=== PATIENT | male | born 1960 | race Caucasian/White ===

== ENCOUNTER 2016-12-20 14:20 | Observation (INO) | payer BC ==
[~2016-12-20] VITALS: Ht 175.3 cm; Wt 117.9 kg
--- NOTE | 2016-12-20 14:21 | NUR ---
Placed in room 7. Placed on diagnostic cardiac sonographer, blood pressure machine and pulse oximeter. Triaged at bedside. To gown for exam. Side rails up. Report given to Amita BURNHAM.
[2016-12-20 14:29] VITALS: BP_SYST 137
[2016-12-20] MEDS ORDERED: ASPIRIN 325 MG TABLET PO ONE (14:30)
--- NOTE | 2016-12-20 14:31 | NUR ---
Dr. Amin at bedside for evaluation
--- NOTE | 2016-12-20 14:35 | NUR ---
PT. TO ER AAOx4 PRESENTED TO THE ER C/O CHEST PAIN SINCE LAST NIGHT. PER PT. HE ATE EGGS AND BEANS LAST NIGHT STARTED MILD EPIGASTRIC PAIN, THIS MORNING ATE HAM AND EGGS STARTED MILD MID CHEST PAIN NON RADIATING 4/10, STATES NO TROUBLE BREATHING, DENIES N/V/D, DENIES HEADACHE, ON SENIOR MANAGER ASSET PROTECTION
[2016-12-20] MEDS ORDERED: MAG HYDROX/AL HYDROX/SIMETH 30 ML, BELLADONNA ALKALOIDS/PHENOBARB 10 ML, LIDOCAINE VISC... PO ONE ×3 (14:45)
[2016-12-20 14:46] LABS: BASOPHILS # (AUTO) 0.1 K/uL (0.0-0.2); BASOPHILS % (AUTO) 1.2 % (0.0-2.0); EOSINOPHILS # (AUTO) 0.2 K/uL (0.0-0.4); EOSINOPHILS % (AUTO) 1.8 % (0.0-4.0); HEMATOCRIT 43.2 % (36-54); HEMOGLOBIN 14.5 g/dL (14.0-18.0); LYMPHOCYTES % (AUTO) 25.6 % (20.5-51.5); MEAN CORPUSCULAR HEMOGLOBIN 30 pg (27-31); MEAN CORPUSCULAR HGB CONC 34 % (32-36); MEAN CORPUSCULAR VOLUME 88 fL (79.0-98.0); MONOCYTES # (AUTO) 0.9 K/uL (0.0-1.0); NEUTROPHILS # (AUTO) 7.4 K/uL (1.8-7.7); NEUTROPHILS % (AUTO) 63.4 % (40.0-70.0); PLATELET COUNT (AUTO) 212 K/uL (130-430); RED BLOOD CELL COUNT(AUTO) 4.91 MIL/uL (4.2-6.2); WHITE BLOOD COUNT (AUTO) 11.6 K/uL (4.8-10.8)
[2016-12-20 14:51] LABS: CALCIUM 8.6 mg/dL (8.4-11.0); CREATININE 1.1 mg/dL (0.55-1.30); POTASSIUM 3.5 mmol/L (3.5-5.1)
[2016-12-20 14:53] LABS: PROTHROMBIN TIME 10.4 SECS (9.5-12.5)
[2016-12-20 14:56] LABS: ALBUMIN 3.7 g/dL (3.4-4.8); TOTAL BILIRUBIN 0.4 mg/dL (0.0-1.0); TOTAL PROTEIN, SERUM 7.1 g/dL (6.4-8.3)
--- NOTE | 2016-12-20 15:19 | NUR ---
DR. VILLELA AT BEDSIDE TALING TO THE PT. ABOUT ELEVATED TROPONIN AND FURTHUR PLAN OF CARE Addendum: 12/20/16 at 1519 by GLENN TALKING
--- NOTE | 2016-12-20 15:24 | NUR ---
PT. STATES NO PIAN AFTER TAKING ASPRIN AND GI COCKTAIL
[2016-12-20] MEDS ORDERED: ENOXAPARIN SODIUM 100 MG/ML SYRINGE SUBCUT ONE (15:30)
[2016-12-20 15:41] LABS: BILIRUBIN,URINE NEGATIVE (NEGATIVE); CLARITY/URINE CLEAR (CLEAR); COLOR,URINE YELLOW (YELLOW); GLUCOSE,URINE NEGATIVE (NEGATIVE); KETONES,URINE NEGATIVE (NEGATIVE); LEUKOCYTE ESTERASE ,URINE NEGATIVE (NEGATIVE); NITRITE, URINE NEGATIVE (NEGATIVE); PROTEIN URINE NEGATIVE (NEGATIVE)
[2016-12-20 15:44] LABS: BLOOD, URINE TRACE (NEGATIVE)
[2016-12-20 15:58] LABS: BACTERIA,URINE FEW /HPF (None Seen); RBC,URINE 0-3 /HPF (0-3)
[2016-12-20 15:59] LABS: MUCUS,URINE 1+ /LPF (None Seen)
[2016-12-20] MEDS ORDERED: NITROGLYCERIN 0.4 MG TAB.SUBL SL PRN (16:15)
--- NOTE | 2016-12-20 16:15 | NUR ---
Patient will be admitted to care of DR. HOLLEY. Admitted to TELE OBS unit. Will go to room 122A. Belongings list completeD BY PATRICK HERMOSILLO Summary report printed. Report given to ADMITTING NURSE
--- NOTE | 2016-12-20 16:23 | NUR ---
ADMISSION NOTE Received patient from ER via renatarlan, received report from CANDELARIO BURNHAM. Patient admitted with diagnosis of CHEST PAIN. Patient oriented to hospital routine, call light, toileting and safety-patient verbalized understanding.
[2016-12-20 16:36] VITALS: BP_SYST 139
--- NOTE | 2016-12-20 16:41 | NUR ---
CALLED CARDIOLOGY CONSULT TO DR ESTRADA, RE: CHEST PAIN, DR RONDON OPAL MINER. SPOKE TO KIP
[2016-12-20 16:43] VITALS: BP_SYST 139
--- NOTE | 2016-12-20 17:33 | NUR ---
Rounds: Pt sitting semi-fowlers in bed. Denies chest pain and SOB. Call light in reach. Pt ambulatory with steady gait. Ambulates well unassisted. Continue to monitor.
--- NOTE | 2016-12-20 18:32 | NUR ---
Closing Note: Pt sitting semi-fowlers in bed. No acute signs of distress noted. Patient denies chest pain and SOB. Call light in reach. No other needs noted. Endorse plan of care to NOC RN.
[2016-12-20] MEDS ORDERED: ZOLPIDEM TARTRATE 5 MG TABLET PO PRN (18:45)
[2016-12-20] MEDS ORDERED: ACETAMINOPHEN 325 MG TABLET PO PRN (18:45)
[2016-12-20] MEDS ORDERED: *LOVENOX 1MG/KG Q12H/PHARMACY XX ONE (18:45)
[2016-12-20] MEDS ORDERED: ONDANSETRON HCL 4 MG/2 ML VIAL IVP PRN (18:45)
[2016-12-20] MEDS ORDERED: MORPHINE 2 MG/ML INJ. SYRINGE IVP PRN (18:45)
[2016-12-20] MEDS ORDERED: PANTOPRAZOLE SODIUM 40 MG/VIAL (PROTONIX) IVP ONE (19:15)
--- NOTE | 2016-12-20 19:50 | NUR ---
NOTES; SEEN PT WITH BOOTS ON IN BED. PT IS ANXIOUS TO GO HOME. AT BEDSIDE WITH GOOD SUPPORT. NO ACUTE DISTRESS NOTED. VITAL SIGNS STABLE, AFEBRILE. IV SALINE LOCK THE LEFT FOREARM , PATENT. PLAN OF CARE DISCUSSED. PT VERBALIZED UNDERSTANDING. PT DENIES ANY CHEST PAIN OR DISTRESS AT THIS TIME. SAFETY MEASURES IN PROGRESS. WILL CONTINUE TO MONITOR.
--- NOTE | 2016-12-20 19:50 | NUR ---
NOTES; RECEIVED CRITICAL TROPONIN RESULTS OF 0.[address] [employer] RONDON SALES LEADER FOR DR ESTRADA PRESENT AT STATION NOTIFIED.
[2016-12-20] MEDS: METOPROLOL TARTRATE 25 MG TABLET PO SCH (20:33)
[2016-12-20] MEDS: ENOXAPARIN SODIUM 120 MG/0.8 ML SYRINGE SUBCUT SCH ×2 (20:34→20:38)
--- NOTE | 2016-12-21 | NUR ---
NOTES; PT APPEARED TO BE SLEEPING, EYES CLOSED. EASILY AROUSED. RESPIRATION EVEN AND NONLABORED. INFORMED PT NOT TO DRINK OR EAT ANY FOOD PER MD ORDER. NPO INPROGRESS AT THIS TIME. PT VERBALIZED UNDERSTANDING. SAFETY MEASURES IN PROGRESS.
[2016-12-21 00:31] VITALS: BP_SYST 114
--- NOTE | 2016-12-21 02:00 | NUR ---
NOTES; PT APPEARED TO BE SLEEPING, EYES CLOSED. EASILY AROUSED. RESPIRATION EVEN AND NONLABORED. SAFETY MEASURES IN PROGRESS.
[2016-12-21 02:25] LABS: CALCIUM 8.3 mg/dL (8.4-11.0); CREATININE 0.86 mg/dL (0.55-1.30); POTASSIUM 3.9 mmol/L (3.5-5.1)
--- NOTE | 2016-12-21 03:29 | NUR ---
NOTES; ALCON CORTES MAKING ROUNDS IN THE EVEN INFORMED ABOUT TROPONIN RESULTS. DR. RONDON STATED AT THAT TIME " DON'T CALL ME IN THE MIDDLE OF THE NIGHT WITH ANY CRITICAL TROPONIN RESULTS" . PT IS ASYMPTOMATIC. RESTING QUIETLY, EASILY AROUSED. DENIES ANY CHEST PRESSURE OR PAIN. CHARGE NURSE AND RN COVERING NOTIFIED.
[2016-12-21 04:39] VITALS: BP_SYST 114
--- NOTE | 2016-12-21 05:34 | NUR ---
NOTES; APPEARED TO BE SLEEPING, EYES CLOSED, RESPIRATION EVEN AND NONLABORED. DENIES ANY PAIN AT THIS TIME. SAFETY MEASURES IN PROGRESS.
[2016-12-21 06:35] LABS: BASOPHILS # (AUTO) 0.1 K/uL (0.0-0.2); EOSINOPHILS # (AUTO) 0.2 K/uL (0.0-0.4); EOSINOPHILS % (AUTO) 2.5 % (0.0-4.0)
--- NOTE | 2016-12-21 06:52 | NUR ---
NOTES; RESTING QUIETLY, NO ACUTE DISTRESS NOTED. DENIES ANY PAIN AT THIS TIME. ALL NEEDS ATTENDED. SAFETY MEASURES IN PROGRESS.
[2016-12-21 07:03] LABS: BASOPHILS % (AUTO) 0.6 % (0.0-2.0); HEMATOCRIT 41.8 % (36-54); HEMOGLOBIN 14.1 g/dL (14.0-18.0); LYMPHOCYTES # (AUTO) 2.5 K/uL (1.0-5.5); LYMPHOCYTES % (AUTO) 27.2 % (20.5-51.5); MEAN CORPUSCULAR HEMOGLOBIN 30 pg (27-31); MEAN CORPUSCULAR HGB CONC 34 % (32-36); MEAN CORPUSCULAR VOLUME 90 fL (79.0-98.0); MONOCYTES # (AUTO) 0.8 K/uL (0.0-1.0); MONOCYTES % (AUTO) 9.2 % (1.7-9.3); NEUTROPHILS # (AUTO) 5.5 K/uL (1.8-7.7); NEUTROPHILS % (AUTO) 60.5 % (40.0-70.0); PLATELET COUNT (AUTO) 192 K/uL (130-430); RED BLOOD CELL COUNT(AUTO) 4.64 MIL/uL (4.2-6.2); RED CELL DISTRIBUTION WIDTH 13.1 % (9.0-15.0); WHITE BLOOD COUNT (AUTO) 9.1 K/uL (4.8-10.8)
--- NOTE | 2016-12-21 08:00 | NUR ---
PT IN BED, ANXIOUS, HR IS 43 BUT NO CHEST PAIN, EXPALINED THAT WE CALL MD TO CLARIFY ORDER FOR DIET
[2016-12-21 08:15] VITALS: BP_SYST 140
[2016-12-21] MEDS: ENOXAPARIN SODIUM 120 MG/0.8 ML SYRINGE SUBCUT SCH (08:50)
[2016-12-21] MEDS: METOPROLOL TARTRATE 25 MG TABLET PO SCH (08:51)
[2016-12-21] MEDS ORDERED: ASPIRIN 81 MG TABLET(ECOTRIN) PO SCH (09:00)
[2016-12-21] MEDS ORDERED: PANTOPRAZOLE SODIUM 40 MG/VIAL (PROTONIX) IVP SCH (09:00)
[2016-12-21] MEDS ORDERED: ATORVASTATIN 20 MG TABLET PO SCH (09:00)
--- NOTE | 2016-12-21 10:00 | NUR ---
PT IN BED, ATE BREAKFAST, HR 53, NO CHEST PAIN
--- NOTE | 2016-12-21 10:32 | NUR ---
CHARTED ON WRONG PATIENT, WILL DO ANOTHER ASSESSMENT Addendum: 12/21/16 at 1059 by Tarik Amador RN CHARTING WAS DONE AT 1003
--- NOTE | 2016-12-21 11:05 | NUR ---
NOTE SPOKE TO DR CARO THIS MORNING AT 0940AM, WHO STATED IF DR RONDON IS NOT DOING ANY PROCEDURE ON PT PT MAY EAT DIET. DR RONDON WAS CALLED AND NOTIFIED MD OF ALL PT'S TROPONIN LEVELS AND HEART RATE OF 45-48 SINCE 04AM. STATED NO PROCEDURES OR TEST TO BE DONE TODAY AND PT MAY EAT. CARDIAC DIET ORDERED FOR PT. DR CARO CAME TO SEE PT AT 1030AM, AND AFTER ASSESSMENT STATED PT MAYBE DISCHARGED HOME AFTER SEEN BY CARDIOLOGY - DR RONDON. PT HAS HIS AT BEDSIDE SINCE 09AM. PT'S HAD BROUGHT PT BREAKFAST FROM HOME. PT DENIES ANY CHEST DISCOMFORT OR PRESSURE ALL SHIFT. PT HAS HAD TELE UNIT ON ALL SHIFT AND AMBULATES AD ISADORA IN ROOM AND TO RESTROOM. CALL LIGHT WITHIN REACH.
[2016-12-21 12:23] VITALS: BP_SYST 146
--- NOTE | 2016-12-21 14:03 | NUR ---
PT IN BED, NO C/O PAIN, SPOUSE AT BEDSIDE, PT HR IS 56 (SB ON TELE)
--- NOTE | 2016-12-21 14:20 | NUR ---
note Dr Alarcon was called per pt's request to ask around what time Dr Alarcon would be in to do rounds. Dr Alarcon said later on this afternoon.
[2016-12-21 16:28] VITALS: BP_SYST 127
--- NOTE | 2016-12-21 17:10 | NUR ---
NOTE PT DRESSED IN STREET CLOTHES AND HAS TELE UNIT ON - WAITING FOR DR RONDON TO DO ROUNDS. NO CHEST DISCOMFORT/PAIN/PRESSURE NOTED ALL SHIFT. PT'S STILL AT BEDSIDE SINCE THIS MORNING. CALL LIGHT WITHIN REACH.
--- NOTE | 2016-12-21 18:08 | NUR ---
NOTE PT SITTING UP IN BED EATING HIS DINNER. PT WAS GIVEN PRUNE JUICE X2 FOR BOWEL MOVEMENT. PT'S AT BEDSIDE AT THIS TIME. PT MAINTAINED WITH SAFETY PRECAUTIONS ALL SHIFT. PT WAS CHECKED ON Q1' AND PRN FOR NEEDS. PT AND HIS DID AMBULATE IN [place] THIS AFTERNOON. PT HAS STEADY GAIT AND NO CHEST PAIN/DISCOMFORT/PRESSURE ALL SHIFT. CALL LIGHT WITHIN REACH.
--- NOTE | 2016-12-21 19:39 | NUR ---
NOTE PT WAS SEEN AND ASSESSED BY DR RONDON. DISCHARGE ORDER WAS GIVEN. PT'S TELE UNIT WAS DC'D AND RETURNED TO FISH BAIT PROCESSING SUPERVISOR. LEFT ARM IV WAS DC'D AND SITE BENIGN. NO SWELLING/REDNESS/BLEEDING OR TENDERNESS AT SITE NOTED AT THIS TIME. PT WAS GIVEN TRANSITIONAL CARE INSTRUCTIONS AND PRESCRIPTIONS. QUESTIONS/CONCERNS WERE ANSWERED AT THIS TIME. NO SOB/RESP DISTRESS OR CHEST PAIN/DISCOMFORT/PRESSURE WAS NOTED ALL SHIFT. PT DRESSED IN STREET CLOTHES AND PACKED ALL BELONGINGS. PT AND HIS CHECKED SIDE TABLE AND DRAWERS FOR BELONGINGS. PT OFF THE FLOOR AT THIS TIME TO PRIVATE CAR. PT STABLE.
--- NOTE | 2016-12-24 10:56 | NUR ---
Discharge Follow Up Phone Call SALES ASSOCIATE FISHING phoned patient, . Patient stated he was feeling fine. He stated he filled his prescriptions and is taking them as directed. Patient said his had called to make an appointment with his PCP but they had not called back. [employer]ATE [employer] asked if it would be okay to call and determine what the problem was. Patient agreed. SALES ASSOCIATE [employer] phoned Dr Carmen's office, [phone] f [phone], and made an appointment for patient on 12/25/16 at 10:45am. SALES ASSOCIATE [employer] phoned patient and patient agreed to the appointment time. [employer] faxed H&P, Consult and DC Summary to Dr Carmen's office. Patient had no questions or concerns. No further follow up needed.
== END 2016-12-21 19:35 | disposition home or self-care (01) ==
LOC: SED 14:20 → STU 16:01
PROVIDERS: ADMIT Internal Medicine; ATTEND Internal Medicine
DX: R07.9 Chest pain, unspecified (principal); E78.5 Hyperlipidemia, unspecified; F17.200 Nicotine dependence, unspecified, uncomplicated
CPT/HCPCS: 36415 ×2; 71010; 80048; 80053; 80061; 81000; 83735; 83880; 84484 ×2; 85025 ×2; 85379; 85610; 85730; 93005 ×2; 93306; 96372; 96374; 96376; 99285; C9113 ×2; G0378 ×2; J1650 ×2; J2001

== ENCOUNTER 2017-01-02 02:41 | Observation (INO) | payer BC ==
[~2017-01-02] VITALS: Ht 182.9 cm; Wt 116.6 kg
[2017-01-02 02:41] VITALS: BP_SYST 138
--- NOTE | 2017-01-02 02:42 | NUR ---
Placed in room 1 . Placed on surveillance system monitor, blood pressure machine and pulse oximeter. To gown for exam. Side rails up. Report given to Kobi BURNHAM.
[2017-01-02] MEDS ORDERED: NACL 0.9% 1,000 ML IV ONE (02:45)
[2017-01-02] MEDS ORDERED: ASPIRIN 81 MG TAB.CHEW PO ONE (02:45)
--- NOTE | 2017-01-02 02:45 | NUR ---
ER MD Kang at bedside for evaluation
--- NOTE | 2017-01-02 02:55 | NUR ---
# 20 gauge angiocath placed to right ac. Use of asceptic technique. Opsite placed over site. Blood return noted. Blood for lab drawn from site. Flushed with 10 cc of normal saline. No evidence of infiltration noted. Patient tolerated well.
--- NOTE | 2017-01-02 03:00 | NUR ---
Pt c/o 01/20 chest pain. Pt reports pain radiates from his epigastric area up the sternal area, which started earlier today and lasted for approx 50 min. Pt reports having similar symptoms before, on December 20, in which troponin was found to be elevated. Denies SOB, N/V, fever, chills. No acute distress noted. Respirations even and unlabored. Will continue to monitor
[2017-01-02 03:13] LABS: EOSINOPHILS # (AUTO) 0.2 K/uL (0.0-0.4)
[2017-01-02] MEDS ORDERED: NITROGLYCERIN 1 INCH (GM) OINT. TP ONE (03:15)
--- NOTE | 2017-01-02 03:15 | NUR ---
Pt requesting to speak w MD before application of Nitro ointment. MD bedside explaining medication purpose and side effects of Nitro ointment. MD aware of HR. Pt in agreement w application of med. Will continue to monitor
[2017-01-02 03:16] LABS: BASOPHILS # (AUTO) 0.3 K/uL (0.0-0.2); BASOPHILS % (AUTO) 2.1 % (0.0-2.0); EOSINOPHILS % (AUTO) 1.4 % (0.0-4.0); HEMATOCRIT 42.9 % (36-54); HEMOGLOBIN 14.5 g/dL (14.0-18.0); MEAN CORPUSCULAR HEMOGLOBIN 30 pg (27-31); MEAN CORPUSCULAR HGB CONC 34 % (32-36); MEAN CORPUSCULAR VOLUME 88 fL (79.0-98.0); MONOCYTES % (AUTO) 8.2 % (1.7-9.3); NEUTROPHILS # (AUTO) 7.9 K/uL (1.8-7.7); NEUTROPHILS % (AUTO) 64.3 % (40.0-70.0); PLATELET COUNT (AUTO) 227 K/uL (130-430); RED BLOOD CELL COUNT(AUTO) 4.86 MIL/uL (4.2-6.2); RED CELL DISTRIBUTION WIDTH 12.9 % (9.0-15.0); WHITE BLOOD COUNT (AUTO) 12.4 K/uL (4.8-10.8)
[2017-01-02 03:25] LABS: PROTHROMBIN TIME 10.7 SECS (9.5-12.5)
[2017-01-02 03:32] LABS: CALCIUM 8.7 mg/dL (8.4-11.0); CREATININE 0.88 mg/dL (0.55-1.30); POTASSIUM 4.3 mmol/L (3.5-5.1)
[2017-01-02 03:33] LABS: ALBUMIN 3.5 g/dL (3.4-4.8); TOTAL BILIRUBIN 0.4 mg/dL (0.0-1.0); TOTAL PROTEIN, SERUM 7.1 g/dL (6.4-8.3)
[2017-01-02 03:36] LABS: CHOLESTEROL 133 mg/dL (<200); HDL CHOLESTEROL 48 mg/dL (>45); LDL CHOLESTEROL 69 mg/dL (<100); TRIGLYCERIDES 85 mg/dL (30-150)
[2017-01-02] MEDS ORDERED: ATOR20TA64 PO (03:40)
[2017-01-02] MEDS ORDERED: METO25TA6 PO (03:41)
[2017-01-02] MEDS ORDERED: ASPI-1063 PO (03:41)
[2017-01-02] MEDS ORDERED: ENOXAPARIN SODIUM 120 MG/0.8 ML SYRINGE SUBCUT ONE (04:00)
[2017-01-02] MEDS ORDERED: ONDANSETRON HCL 4 MG/2 ML VIAL IVP PRN (04:15)
[2017-01-02] MEDS ORDERED: ACETAMINOPHEN 325 MG TABLET PO PRN (04:15)
[2017-01-02] MEDS ORDERED: MORPHINE 2 MG/ML INJ. SYRINGE IVP PRN (04:15)
[2017-01-02] MEDS ORDERED: *LOVENOX 1MG/KG Q12H/PHARMACY XX ONE (04:15)
[2017-01-02] MEDS ORDERED: NITROGLYCERIN 0.4 MG TAB.SUBL SL ONE (04:15)
--- NOTE | 2017-01-02 04:45 | NUR ---
Patient will be admitted to care of Dr. Jaquez. Admitted to Med Surg unit. Will go to room 135. Summary report printed. Report given to Eugenia BURNHAM.
--- NOTE | 2017-01-02 04:45 | NUR ---
ADMIT NOTE Received pt from ER to the floor with a diagnosis of CHEST PAIN. Admission process initiated. patient oriented to pain management, safety and call light-teach back done.
--- NOTE | 2017-01-02 04:50 | NUR ---
INITIAL ASSESSMENT PT. A/OX4, VITAL SIGNS STABLE, NO DISTRESS NOTED, DENIES PAIN, PT. IS SINUS MAGALY ON MONITOR WITH HEART RATE OF 48, PT. IS ASYMPTOMATIC. UPDATED WITH PLAN OF CARE, ENCOURAGED PT. TO USE CALL LIGHT FOR ASSISTANCE.
[2017-01-02 04:51] VITALS: BP_SYST 118
--- NOTE | 2017-01-02 05:07 | NUR ---
CONSULTATION PAGED REASON FOR CONSULTATION:NSTEMI EVAL WAS CONSULT CALLED?Y PERSON WHO WAS NOTIFIED:ARIEL CONSULTING PHYSICIAN:JUSTINA LEDEZMA TILESETTER SPECIALTY:CARDIO TILESETTER PHONE NUMBER:[phone]
--- NOTE | 2017-01-02 06:00 | NUR ---
DR. LEYDI HOLLEY AT BEDSIDE.
--- NOTE | 2017-01-02 06:20 | NUR ---
CLOSING NOTES PT. RESTING QUIETLY, VITAL SIGNS STABLE, NO DISTRESS NOTED, DENIES PAIN, IV ACCESS PATENT AND BENIGN, KEPT COMFORTABLE.
[2017-01-02 08:09] VITALS: BP_SYST 113
--- NOTE | 2017-01-02 08:20 | NUR ---
AM ROUNDS Late entry due to patient care. Patient received, alert awake and oriented x4. VSS. Patient denies chest pain at this time. Heart rate 48, Dr. Obrien aware. Respirations even and unlabored. site monitor in place, rhythm noted. IV site patent and intact. Patient able to ambulate to bathroom, voiding without difficulty, steady gait. Plan of care discussed, patient and verbalized understanding. No further questions at this time. Safety and fall precautions in place, call light within reach. Will continue to monitor.
[2017-01-02] MEDS ORDERED: PANTOPRAZOLE SODIUM 40 MG/VIAL (PROTONIX) IVP SCH (09:00)
[2017-01-02] MEDS ORDERED: ATORVASTATIN 20 MG TABLET PO SCH (09:00)
[2017-01-02] MEDS ORDERED: ASPIRIN 325 MG TABLET PO SCH (09:00)
[2017-01-02] MEDS ORDERED: ENOXAPARIN SODIUM 120 MG/0.8 ML SYRINGE SUBCUT SCH (09:00)
--- NOTE | 2017-01-02 09:15 | NUR ---
MD Dr. Obrien at bedside, new orders noted.
--- NOTE | 2017-01-02 09:19 | NUR ---
CALLED PLANNING LEAD YU [facility] RE: STAT TRANSFER TO [facility] FOR CATH.
--- NOTE | 2017-01-02 09:36 | NUR ---
CALLED [facility] RE: TRANSFER TO [facility] VIA [facility]REE TAPPING LABORER TRANSPORT. SPOKE TO SKIP, PROPELLER LAYOUT WORKER TIME IS 1045
[2017-01-02 09:45] VITALS: BP_SYST 113
--- NOTE | 2017-01-02 09:52 | NUR ---
CALLED [facility] FOR A BED ASSIGNMENT. PER HÉCTOR, NURSING BUTTING SAW OPERATOR AND BED CONTROL, NO BED ASSIGENED YET IN [place] BUT WILL CALL ME [facility] ONCE BED AVAILABLE OR WILL GET AN ADVICE TO GO STRAIGHT TO CUSTOMER TRAINING SPECIALIST.
--- NOTE | 2017-01-02 10:29 | NUR ---
ROUNDS Patient resting in bed at this time. Denies chest pain and SOB. Transitional care instructions given, consent signed for transfer. Patient has no further questions at this time. Will continue to monitor.
--- NOTE | 2017-01-02 11:01 | NUR ---
PT TRANSFERRED Transfer packet with Transfer Orders and Medication Reconciliation form given to EMT with report. Exitcare provided. [facility] ID band removed, replaced with ID band with pt's name and . IV catheter removed, intact and dressing applied, no active bleeding. All belongings sent with patient. Patient left floor via gurney escorted by EMT in no distress. Addendum: 01/02/17 at 1102 by Misti Lawson RN IV catheter patent and intact, dressing CDI. Addendum: 01/02/17 at 1107 by Misti Lawson RN Report given to Raisa
[2017-01-02 11:25] VITALS: BP_SYST 127
== END 2017-01-02 11:00 | disposition short-term general hospital (02) ==
LOC: SED 02:41 → STU 04:09
PROVIDERS: ADMIT Internal Medicine; ATTEND Internal Medicine
DX: R07.89 Other chest pain (principal); E66.9 Obesity, unspecified; I10 Essential (primary) hypertension; E78.5 Hyperlipidemia, unspecified; R79.89 Other specified abnormal findings of blood chemistry; F17.210 Nicotine dependence, cigarettes, uncomplicated
CPT/HCPCS: 36415; 71010; 80053; 80061; 83880; 84484; 85025; 85379; 85610; 85730; 87081; 93005; 96361; 96372; 96374; 99285; C9113; G0378; J1650; J7030; 96360